=== PATIENT | female | born 1980 | race Two or more races ===

== ENCOUNTER 2017-09-08 00:38 | Emergency (ER) | payer OTHER ==
[~2017-09-08] VITALS: Ht 160 cm; Wt 61.2 kg
[2017-09-08] MEDS ORDERED: MULTI VITAMIN1 EACH (00:45)
== END 2017-09-08 04:54 | disposition home or self-care (01) ==
LOC: ER 00:38
DX: O20.0 Threatened abortion (principal); Z34.01 Encounter for supervision of normal first pregnancy, first trimester

== ENCOUNTER 2017-09-08 20:34 | Day surgery (SDC) | payer OTHER ==
[~2017-09-08] VITALS: Ht 160 cm; Wt 61.2 kg
[~2017-09-08 20:34] MED LIST: MULTI VITAMIN1 EACH
== END 2017-09-09 19:25 | disposition home or self-care (01) ==
LOC: ER 20:34 → CIR.AMB 09-09 10:54
DX: O03.4 Incomplete spontaneous abortion without complication (principal)